=== PATIENT | female | born 1960 | race American Indian/Alaskan Native ===

== ENCOUNTER 2018-11-04 20:53 | Emergency (ER) | payer OTHER, BC ==
[2018-11-04] MEDS ORDERED: TYLENOL PO ONE (21:20)
[2018-11-04] MEDS ORDERED: TYLENOL ONE (21:40)
[2018-11-04 22:11] VITALS: BP 180/95
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
== END 2018-11-04 22:30 | disposition home or self-care (01) ==
LOC: ED 20:53
DX: M25.511 Pain in right shoulder (principal); M25.512 Pain in left shoulder; M54.6 Pain in thoracic spine; I10 Essential (primary) hypertension; E78.2 Mixed hyperlipidemia; K21.9 Gastro-esophageal reflux disease without esophagitis; Z88.1 Allergy status to other antibiotic agents; V49.49XA Driver injured in collision with other motor vehicles in traffic accident, initial encounter; Y93.89 Activity, other specified; Y92.488 Other paved roadways as the place of occurrence of the external cause; Y99.8 Other external cause status
CPT/HCPCS: 99282